=== PATIENT | male | born 1960 ===

== ENCOUNTER 2020-08-26 08:30 | Inpatient (IN) | payer OTHER ==
[~2020-08-26] VITALS: Ht 170.2 cm; Wt 98.0 kg
[2020-08-31] MEDS ORDERED: TOPROL XL100 M1 PO (13:23)
[2020-08-31] MEDS ORDERED: BENICAR HCT 401 EACH PO (13:23)
[2020-08-31] MEDS ORDERED: ADULT LOW DOSE81 M1 PO (13:24)
[2020-08-31] MEDS ORDERED: LIPITOR40 MG PO (13:24)
[2020-08-31] MEDS ORDERED: NORVASC5 MG PO (13:24)
[2020-08-31] MEDS ORDERED: CARDURA XL4 MG PO (13:25)
[2020-09-09] MEDS ORDERED: DICLOFENAC SODI75 MG PO (09:18)
[2020-09-09] MEDS ORDERED: HYOSCYAMINE0.125 M1 SL (09:18)
[2020-09-09] MEDS ORDERED: GABAPENTIN300 MG PO (09:18)
== END 2020-09-09 11:32 | disposition home or self-care (01) | DRG 331 ==
LOC: O/R 09-06 07:39 → SURH 09-06 07:39
PROVIDERS: ADMIT Surgery; ATTEND Surgery
PROC: 0DBK4ZZ Excision of Ascending Colon, Percutaneous Endoscopic Approach (ICD-10-PCS; principal; 2020-09-06)
PROC: 07TC4ZZ Resection of Pelvis Lymphatic, Percutaneous Endoscopic Approach (ICD-10-PCS; 2020-09-06)
DX: K63.5 Polyp of colon (principal); R59.0 Localized enlarged lymph nodes; K63.89 Other specified diseases of intestine; R19.5 Other fecal abnormalities; I10 Essential (primary) hypertension; E78.49 Other hyperlipidemia